=== PATIENT | male | born 1945 | race Caucasian/White ===

== ENCOUNTER 2019-11-19 19:52 | Inpatient (IN) ==
[2019-11-19 20:35] LABS: Basophils % 0.3 %; Eosinophils # 0.1 K/mcL (0.0-0.6); Eosinophils % 0.5 %; Hematocrit 39.5 % (37.5-50.1); Hemoglobin 13.6 g/dL (12.9-16.9); Immature Granulocytes % 0.5 % (0-4); Lymphocytes % 6.3 %; Mean Corpuscular HGB Conc 34.4 g/dL (31.6-35.5); Mean Corpuscular Hemoglobin 33.7 pg (28.0-33.3); Mean Corpuscular Volume 97.8 fL (83.0-100.0); Mean Platelet Volume 10.5 fL (9.4-12.4); Monocytes # 1.2 K/mcL (0.0-1.3); Monocytes % 7.4 %; Neutrophils # 13.1 K/mcL (1.6-8.9); Platelet Count 271 K/mcL (140-400); Red Blood Count 4.04 M/mcL (4.19-5.50); Red Cell Distribution Width 12.9 % (11.5-14.5); White Blood Count 15.4 K/mcL (4.3-11.1)
[2019-11-19] MEDS: 0.9 % Sodium Chloride 1,000 ML IVC SCH (20:56)
[2019-11-19 21:03] LABS: BUN/Creatinine Ratio 20 (6-26); Blood Urea Nitrogen 26 mg/dL (8-23); Calcium 9.5 mg/dL (8.6-10.3); Carbon Dioxide 28 mEq/L (23-29); Chloride 101 mEq/L (98-107); Glucose 108 mg/dL (70-105); Osmolality,Calculated 299 (280-300); Potassium 3.8 mEq/L (3.5-5.1); Sodium 142 mEq/L (136-145); eGFR For African Americans > 60 (> 60); eGFR For Non-African Americans 55 (> 60)
[2019-11-19 21:05] LABS: Troponin I 0.03 ng/mL (< 0.04)
[2019-11-19] MEDS ORDERED: Naloxone 0.4 MG/ML INJ IVP PRN (21:25)
[2019-11-19] MEDS ORDERED: Ipratropium/Albuterol Neb 3 ML IH PRN (22:50)
[2019-11-19] MEDS ORDERED: MOM Conc 10 ML UD.LIQ PO PRN (22:52)
[2019-11-19] MEDS ORDERED: MOMETASONE FUROATE APPL TP PRN (22:52)
[2019-11-19] MEDS ORDERED: Carbamide Peroxide 150 DROP/15 ML BOTTLE BOTH EARS PRN (22:52)
[2019-11-19] MEDS ORDERED: Mag Hydrox/Al Hydrox/Simeth 30 ML UDC PO PRN (22:52)
[2019-11-19] MEDS ORDERED: Ondansetron 4 MG/2 ML VIAL IVP PRN (22:53)
[2019-11-19] MEDS ORDERED: SELENIUM SULFIDE APPL TP SCH (23:00)
[2019-11-20 05:08] LABS: Basophils % 0.3 %; Eosinophils # 0.3 K/mcL (0.0-0.6); Eosinophils % 2.1 %; Hematocrit 37.8 % (37.5-50.1); Hemoglobin 12.6 g/dL (12.9-16.9); Immature Granulocytes % 0.3 % (0-4); Lymphocytes % 8.2 %; Mean Corpuscular HGB Conc 33.3 g/dL (31.6-35.5); Mean Corpuscular Hemoglobin 34.1 pg (28.0-33.3); Mean Corpuscular Volume 102.2 fL (83.0-100.0); Mean Platelet Volume 10.5 fL (9.4-12.4); Monocytes # 1.2 K/mcL (0.0-1.3); Monocytes % 10.1 %; Neutrophils # 9.3 K/mcL (1.6-8.9); Platelet Count 237 K/mcL (140-400); Red Cell Distribution Width 12.8 % (11.5-14.5); White Blood Count 11.7 K/mcL (4.3-11.1)
[2019-11-20 05:28] LABS: BUN/Creatinine Ratio 19 (6-26); Blood Urea Nitrogen 21 mg/dL (8-23); Calcium 8.8 mg/dL (8.6-10.3); Carbon Dioxide 30 mEq/L (23-29); Chloride 104 mEq/L (98-107); Glucose 89 mg/dL (70-105); Osmolality,Calculated 294 (280-300); Potassium 3.8 mEq/L (3.5-5.1); Sodium 141 mEq/L (136-145); eGFR For African Americans > 60 (> 60); eGFR For Non-African Americans > 60 (> 60)
[2019-11-20] MEDS ORDERED: NON-FORMULARY MEDICATION 1 EACH EACH (Omega-3/Dha/Epa/Fish Oil [Fish Oil 1,000 Mg Softgel] PO SCH (07:00)
[2019-11-20] MEDS: Multivit/Ca/Min/Fe/FA 1 TAB TABLET PO SCH ×2 (08:01→10:20)
[2019-11-20] MEDS: Ascorbic Acid 500 MG TABLET PO SCH ×2 (08:02→10:20)
[2019-11-20] MEDS: cefTRIAXone 1,000 MG in Water for inj. (sterile) 10 ML IVP SCH (10:21)
[2019-11-20] MEDS: Azithromycin 500 MG in 0.9 % Sodium Chloride 250 ML IVPB SCH (10:21)
[2019-11-20] MEDS: CLEAR EYES NATURAL TEARS 15 ML BOTTLE BOTH EYES SCH ×3 (10:21→17:10)
[2019-11-20] MEDS: 0.9 % Sodium Chloride 1,000 ML IVC SCH (10:22)
[2019-11-20 11:59] LABS: Adenovirus Not Detected (Not Detect); Bordetella Pertussis Not Detected (Not Detect); Chlamydophila pneumoniae Not Detected (Not Detect); Coronavirus 229E Not Detected (Not Detect); Coronavirus HKU1 Not Detected (Not Detect); Coronavirus NL63 Not Detected (Not Detect); Coronavirus OC43 Not Detected (Not Detect); Human Metapneumovirus Not Detected (Not Detect); Human Rhinovirus/Enterovirus Not Detected (Not Detect); Influenza A Subtype 2009 H1 Not Detected (Not Detect); Influenza B Not Detected (Not Detect); Mycoplasma pneumoniae Not Detected (Not Detect); Parainfluenza Virus 1 Not Detected (Not Detect); Parainfluenza Virus 2 Not Detected (Not Detect); Parainfluenza Virus 3 Not Detected (Not Detect); Parainfluenza Virus 4 Not Detected (Not Detect); Respiratory Syncytial Virus Not Detected (Not Detect)
[2019-11-20] MEDS ORDERED: GuaiFENesin Liq 200 MG/10 ML UDC PO PRN (13:19)
[2019-11-20] MEDS: amLODIPine 5 MG TABLET PO SCH (14:31)
[2019-11-20] MEDS: Albuterol 2.5 MG/3 ML NEBULIZER IH SCH ×2 (15:42→20:41)
[2019-11-20] MEDS: Acetylcysteine 10% 2 ML INHSOL IH SCH ×2 (15:42→20:41)
[2019-11-21] MEDS: Albuterol 2.5 MG/3 ML NEBULIZER IH SCH ×6 (00:02→20:01)
[2019-11-21] MEDS: ARIPiprazole 5 MG TABLET PO SCH ×2 (00:10→21:19)
[2019-11-21] MEDS: CLEAR EYES NATURAL TEARS 15 ML BOTTLE BOTH EYES SCH ×5 (00:10→21:21)
[2019-11-21] MEDS: 0.9 % Sodium Chloride 1,000 ML IVC SCH ×2 (01:23→17:05)
[2019-11-21] MEDS: Acetylcysteine 10% 2 ML INHSOL IH SCH (03:57)
[2019-11-21 06:09] LABS: Basophils % 0.2 %; Eosinophils # 0.1 K/mcL (0.0-0.6); Eosinophils % 0.4 %; Hematocrit 38.5 % (37.5-50.1); Hemoglobin 12.8 g/dL (12.9-16.9); Immature Granulocytes % 0.4 % (0-4); Lymphocytes # 0.7 K/mcL (0.6-4.6); Lymphocytes % 5.6 %; Mean Corpuscular HGB Conc 33.2 g/dL (31.6-35.5); Mean Corpuscular Hemoglobin 33.4 pg (28.0-33.3); Mean Corpuscular Volume 100.5 fL (83.0-100.0); Mean Platelet Volume 10.8 fL (9.4-12.4); Monocytes % 7.6 %; Neutrophils # 11.1 K/mcL (1.6-8.9); Platelet Count 241 K/mcL (140-400); Red Blood Count 3.83 M/mcL (4.19-5.50); Red Cell Distribution Width 12.9 % (11.5-14.5); Segmented Neutrophils % 85.8 %
[2019-11-21 06:28] LABS: BUN/Creatinine Ratio 16 (6-26); Blood Urea Nitrogen 16 mg/dL (8-23); Calcium 8.7 mg/dL (8.6-10.3); Carbon Dioxide 30 mEq/L (23-29); Chloride 100 mEq/L (98-107); Glucose 109 mg/dL (70-105); Osmolality,Calculated 294 (280-300); Potassium 3.7 mEq/L (3.5-5.1); Sodium 141 mEq/L (136-145); eGFR For African Americans > 60 (> 60); eGFR For Non-African Americans > 60 (> 60)
[2019-11-21] MEDS: Ascorbic Acid 500 MG TABLET PO SCH (07:55)
[2019-11-21] MEDS: Multivit/Ca/Min/Fe/FA 1 TAB TABLET PO SCH (07:55)
[2019-11-21] MEDS: cefTRIAXone 1,000 MG in Water for inj. (sterile) 10 ML IVP SCH (09:25)
[2019-11-21] MEDS: Azithromycin 500 MG in 0.9 % Sodium Chloride 250 ML IVPB SCH (09:27)
[2019-11-21] MEDS: amLODIPine 5 MG TABLET PO SCH (09:28)
[2019-11-22] MEDS: Albuterol 2.5 MG/3 ML NEBULIZER IH SCH ×4 (00:31→11:38)
[2019-11-22 06:03] LABS: Basophils # 0.1 K/mcL (0.0-0.2); Basophils % 0.4 %; Eosinophils # 0.1 K/mcL (0.0-0.6); Eosinophils % 0.7 %; Hematocrit 39.5 % (37.5-50.1); Immature Granulocytes % 0.7 % (0-4); Lymphocytes # 0.7 K/mcL (0.6-4.6); Mean Corpuscular HGB Conc 32.9 g/dL (31.6-35.5); Mean Corpuscular Hemoglobin 33.2 pg (28.0-33.3); Mean Platelet Volume 10.1 fL (9.4-12.4); Monocytes % 8.3 %; Platelet Count 242 K/mcL (140-400); Red Blood Count 3.91 M/mcL (4.19-5.50); Red Cell Distribution Width 12.7 % (11.5-14.5); Segmented Neutrophils % 83.9 %; White Blood Count 11.9 K/mcL (4.3-11.1)
[2019-11-22] MEDS: cefTRIAXone 1,000 MG in Water for inj. (sterile) 10 ML IVP SCH (08:43)
[2019-11-22] MEDS: 0.9 % Sodium Chloride 1,000 ML IVC SCH (08:44)
[2019-11-22] MEDS: Multivit/Ca/Min/Fe/FA 1 TAB TABLET PO SCH (08:45)
[2019-11-22] MEDS: amLODIPine 5 MG TABLET PO SCH (08:45)
[2019-11-22] MEDS: Ascorbic Acid 500 MG TABLET PO SCH (08:45)
[2019-11-22 09:18] LABS: BUN/Creatinine Ratio 15 (6-26); Blood Urea Nitrogen 13 mg/dL (8-23); Calcium 8.7 mg/dL (8.6-10.3); Carbon Dioxide 31 mEq/L (23-29); Chloride 100 mEq/L (98-107); Glucose 97 mg/dL (70-105); Osmolality,Calculated 292 (280-300); Potassium 3.7 mEq/L (3.5-5.1); Sodium 141 mEq/L (136-145); eGFR For African Americans > 60 (> 60); eGFR For Non-African Americans > 60 (> 60)
[2019-11-22] MEDS ORDERED: Albuterol 2.5 MG/3 ML NEBULIZER IH PRN (12:00)
[2019-11-22] MEDS: CLEAR EYES NATURAL TEARS 15 ML BOTTLE BOTH EYES SCH ×4 (12:24→21:30)
[2019-11-22] MEDS: Azithromycin 500 MG in 0.9 % Sodium Chloride 250 ML IVPB SCH (12:25)
[2019-11-22] MEDS: Ipratropium/Albuterol Neb 3 ML IH SCH ×2 (16:25→21:37)
[2019-11-22] MEDS: ARIPiprazole 5 MG TABLET PO SCH (21:29)
[2019-11-23] MEDS: Ipratropium/Albuterol Neb 3 ML IH SCH ×4 (04:04→22:28)
[2019-11-23] MEDS: Ascorbic Acid 500 MG TABLET PO SCH (06:17)
[2019-11-23] MEDS: Multivit/Ca/Min/Fe/FA 1 TAB TABLET PO SCH (06:17)
[2019-11-23] MEDS: Azithromycin 500 MG in 0.9 % Sodium Chloride 250 ML IVPB SCH (09:21)
[2019-11-23] MEDS: cefTRIAXone 1,000 MG in Water for inj. (sterile) 10 ML IVP SCH (09:22)
[2019-11-23] MEDS: amLODIPine 5 MG TABLET PO SCH (09:23)
[2019-11-23] MEDS: CLEAR EYES NATURAL TEARS 15 ML BOTTLE BOTH EYES SCH ×4 (09:24→20:41)
[2019-11-23] MEDS: ARIPiprazole 5 MG TABLET PO SCH (20:40)
[2019-11-24] MEDS: Ipratropium/Albuterol Neb 3 ML IH SCH ×4 (03:41→22:24)
[2019-11-24] MEDS: cefTRIAXone 1,000 MG in Water for inj. (sterile) 10 ML IVP SCH (08:41)
[2019-11-24] MEDS: Azithromycin 500 MG in 0.9 % Sodium Chloride 250 ML IVPB SCH (08:42)
[2019-11-24] MEDS: Multivit/Ca/Min/Fe/FA 1 TAB TABLET PO SCH (08:43)
[2019-11-24] MEDS: CLEAR EYES NATURAL TEARS 15 ML BOTTLE BOTH EYES SCH ×4 (08:43→20:38)
[2019-11-24] MEDS: amLODIPine 5 MG TABLET PO SCH (08:43)
[2019-11-24] MEDS: Ascorbic Acid 500 MG TABLET PO SCH (08:43)
[2019-11-24] MEDS: ARIPiprazole 5 MG TABLET PO SCH (20:38)
[2019-11-25 00:53] LABS: Basophils % 0.5 %; Eosinophils # 0.2 K/mcL (0.0-0.6); Eosinophils % 2.6 %; Hematocrit 40.2 % (37.5-50.1); Hemoglobin 13.7 g/dL (12.9-16.9); Immature Granulocytes % 0.2 % (0-4); Lymphocytes # 1.1 K/mcL (0.6-4.6); Lymphocytes % 13.5 %; Mean Corpuscular HGB Conc 34.1 g/dL (31.6-35.5); Mean Corpuscular Volume 99.8 fL (83.0-100.0); Monocytes # 1.1 K/mcL (0.0-1.3); Monocytes % 12.4 %; Platelet Count 276 K/mcL (140-400); Red Blood Count 4.03 M/mcL (4.19-5.50); Red Cell Distribution Width 12.3 % (11.5-14.5); Segmented Neutrophils % 70.8 %; White Blood Count 8.5 K/mcL (4.3-11.1)
[2019-11-25 01:18] LABS: BUN/Creatinine Ratio 20 (6-26); Blood Urea Nitrogen 21 mg/dL (8-23); Calcium 8.8 mg/dL (8.6-10.3); Carbon Dioxide 31 mEq/L (23-29); Chloride 101 mEq/L (98-107); Glucose 102 mg/dL (70-105); Osmolality,Calculated 295 (280-300); Potassium 3.8 mEq/L (3.5-5.1); Sodium 141 mEq/L (136-145); eGFR For African Americans > 60 (> 60); eGFR For Non-African Americans > 60 (> 60)
[2019-11-25] MEDS: Ipratropium/Albuterol Neb 3 ML IH SCH ×4 (03:58→22:10)
[2019-11-25] MEDS: Azithromycin 500 MG in 0.9 % Sodium Chloride 250 ML IVPB SCH (08:37)
[2019-11-25] MEDS: cefTRIAXone 1,000 MG in Water for inj. (sterile) 10 ML IVP SCH (08:37)
[2019-11-25] MEDS: Ascorbic Acid 500 MG TABLET PO SCH (08:38)
[2019-11-25] MEDS: CLEAR EYES NATURAL TEARS 15 ML BOTTLE BOTH EYES SCH ×4 (08:38→21:50)
[2019-11-25] MEDS: amLODIPine 5 MG TABLET PO SCH (08:38)
[2019-11-25] MEDS: Multivit/Ca/Min/Fe/FA 1 TAB TABLET PO SCH (08:38)
[2019-11-25] MEDS ORDERED: Isovue-370 500 ML BOTTLE IVP ONE (09:05)
[2019-11-25] MEDS ORDERED: Simethicone 80 MG TAB.CHEW PO ONE (17:03)
[2019-11-25] MEDS: ARIPiprazole 5 MG TABLET PO SCH (20:02)
[2019-11-25] MEDS: Acetylcysteine 10% 2 ML INHSOL IH SCH ×3 (22:10→22:14)
[2019-11-26] MEDS: Ipratropium/Albuterol Neb 3 ML IH SCH ×4 (03:49→21:47)
[2019-11-26] MEDS: Acetylcysteine 10% 2 ML INHSOL IH SCH ×4 (03:50→21:47)
[2019-11-26] MEDS: Multivit/Ca/Min/Fe/FA 1 TAB TABLET PO SCH (08:10)
[2019-11-26] MEDS: amLODIPine 5 MG TABLET PO SCH (08:10)
[2019-11-26] MEDS: cefTRIAXone 1,000 MG in Water for inj. (sterile) 10 ML IVP SCH (08:11)
[2019-11-26] MEDS: Azithromycin 500 MG in 0.9 % Sodium Chloride 250 ML IVPB SCH (08:11)
[2019-11-26] MEDS: Ascorbic Acid 500 MG TABLET PO SCH (08:11)
[2019-11-26] MEDS: CLEAR EYES NATURAL TEARS 15 ML BOTTLE BOTH EYES SCH ×4 (08:12→23:21)
[2019-11-26] MEDS: ARIPiprazole 5 MG TABLET PO SCH (23:26)
[2019-11-27] MEDS: Ipratropium/Albuterol Neb 3 ML IH SCH ×4 (03:18→22:31)
[2019-11-27] MEDS: Acetylcysteine 10% 2 ML INHSOL IH SCH ×4 (03:18→22:31)
[2019-11-27] MEDS: Multivit/Ca/Min/Fe/FA 1 TAB TABLET PO SCH (06:09)
[2019-11-27] MEDS: Ascorbic Acid 500 MG TABLET PO SCH (06:09)
[2019-11-27] MEDS: CLEAR EYES NATURAL TEARS 15 ML BOTTLE BOTH EYES SCH ×4 (07:38→21:07)
[2019-11-27] MEDS: amLODIPine 5 MG TABLET PO SCH (07:38)
[2019-11-27] MEDS ORDERED: Gadolinium Contrast Agent (WT Based) IV PRN (08:18)
[2019-11-27] MEDS ORDERED: predniSONE 20 MG TABLET PO ONE (14:30)
[2019-11-27] MEDS: Doxycycline 100 MG CAPSULE PO SCH ×2 (15:11→21:07)
[2019-11-27] MEDS: metroNIDAZOLE 500 MG TABLET PO SCH ×3 (15:11→21:07)
[2019-11-27] MEDS: ARIPiprazole 5 MG TABLET PO SCH (21:07)
[2019-11-28] MEDS: Acetylcysteine 10% 2 ML INHSOL IH SCH ×2 (04:38→09:18)
[2019-11-28] MEDS: Ipratropium/Albuterol Neb 3 ML IH SCH ×2 (04:38→09:18)
[2019-11-28] MEDS: Ascorbic Acid 500 MG TABLET PO SCH (06:15)
[2019-11-28] MEDS: Multivit/Ca/Min/Fe/FA 1 TAB TABLET PO SCH (06:15)
[2019-11-28] MEDS: metroNIDAZOLE 500 MG TABLET PO SCH (07:20)
[2019-11-28] MEDS: amLODIPine 5 MG TABLET PO SCH (07:20)
[2019-11-28] MEDS: CLEAR EYES NATURAL TEARS 15 ML BOTTLE BOTH EYES SCH ×2 (07:20→11:30)
[2019-11-28] MEDS: Doxycycline 100 MG CAPSULE PO SCH (07:20)
[2019-11-28 10:46] VITALS: BP 110/68
== END 2019-11-28 13:08 | disposition home or self-care (01) | DRG 177 ==
LOC: EMEROOARM 19:52 → 3ANU 19:52 → SUATTDRO 11-20 13:44
PROVIDERS: ADMIT Student in an Organized Health Care Education/Training Program; ATTEND Internal Medicine

== ENCOUNTER 2022-02-04 09:01 | Inpatient (IN) ==
[2022-02-04] MEDS ORDERED: Ondansetron 4 MG/2 ML VIAL IVP ONE (09:14)
[2022-02-04] MEDS ORDERED: 0.9 % Sodium Chloride 1,000 ML IVC ONE (09:14)
[2022-02-04 10:16] LABS: Influenza A PCR Positive (Negative); Influenza B PCR Negative (Negative); Resp. Syncytial Virus PCR Negative (Negative)
[2022-02-04 10:17] LABS: SARS-CoV-2 by PCR (In House) Negative (Negative)
[2022-02-04 10:36] LABS: Basophils % 0.5 %; Hematocrit 39.5 % (37.5-50.1); Hemoglobin 13.4 g/dL (12.9-16.9); Immature Granulocytes % 0.4 % (0-4); Lymphocytes # 0.2 K/mcL (0.6-4.6); Lymphocytes % 2.7 %; Mean Corpuscular HGB Conc 33.9 g/dL (31.6-35.5); Mean Corpuscular Hemoglobin 33.5 pg (28.0-33.3); Mean Corpuscular Volume 98.8 fL (83.0-100.0); Mean Platelet Volume 10.7 fL (9.4-12.4); Monocytes # 1.1 K/mcL (0.0-1.3); Neutrophils # 6.9 K/mcL (1.6-8.9); Platelet Count 156 K/mcL (140-400); Red Cell Distribution Width 13.1 % (11.5-14.5); Segmented Neutrophils % 83.4 %; White Blood Count 8.3 K/mcL (4.3-11.1)
[2022-02-04 11:10] LABS: Alanine Aminotransferase 16 Units/L (7-52); Albumin 3.8 g/dL (3.5-5.7); Albumin/Globulin Ratio 1.6 (1.1-2.2); Aspartate Amino Transferase 27 Units/L (13-39); BUN/Creatinine Ratio 18 (6-26); Bilirubin,Direct 0.2 mg/dL (0.0-0.2); Bilirubin,Indirect 0.6 mg/dL (0.0-1.0); Bilirubin,Total 0.8 mg/dL (0.3-1.0); Blood Urea Nitrogen 23 mg/dL (8-23); Calcium 8.4 mg/dL (8.6-10.3); Carbon Dioxide 28 mEq/L (23-29); Chloride 103 mEq/L (98-107); Globulin 2.4 g/dL (2.4-3.5); Glucose 133 mg/dL (70-105); Lipase 9 Units/L (11-82); Osmolality,Calculated 298 (280-300); Potassium 3.8 mEq/L (3.5-5.1); Sodium 141 mEq/L (136-145); Total Protein 6.2 g/dL (6.4-8.9); eGFR For African Americans > 60 (> 60); eGFR For Non-African Americans 55 (> 60)
[2022-02-04 11:19] LABS: Troponin I 0.04 ng/mL (< 0.04)
[2022-02-04] MEDS ORDERED: Melatonin 3 MG TABLET PO PRN (11:42)
[2022-02-04] MEDS ORDERED: Naloxone 0.4 MG/ML INJ IVP PRN (11:42)
[2022-02-04] MEDS ORDERED: Ondansetron ODT 4 MG TAB.RAPDIS SL PRN (11:42)
[2022-02-04] MEDS ORDERED: *HR* HYDROcodone/Acet 5/325 mg TABLET PO PRN (11:42)
[2022-02-04] MEDS ORDERED: Acetaminophen 325 MG TABLET PO PRN (11:42)
[2022-02-04 12:30] LABS: Alkaline Phosphatase 59 Units/L (34-104)
[2022-02-04] MEDS ORDERED: MOM Conc 10 ML UD.LIQ PO PRN (13:53)
[2022-02-04] MEDS ORDERED: Albuterol 2.5 MG/3 ML NEBULIZER IH PRN (13:53)
[2022-02-04] MEDS: Ipratropium/Albuterol Neb 3 ML IH SCH ×2 (15:55→21:05)
[2022-02-04] MEDS: Artificial Tears SOLN 15 ML BOTTLE BOTH EYES SCH ×2 (17:45→19:39)
[2022-02-04] MEDS: ARIPiprazole 5 MG TABLET PO SCH (19:37)
[2022-02-04] MEDS: *HR* Heparin 5,000 UNIT/ML VIAL SQ SCH (20:48)
[2022-02-05 01:41] LABS: Basophils % 0.2 %; Hematocrit 40.8 % (37.5-50.1); Hemoglobin 13.7 g/dL (12.9-16.9); Immature Granulocytes % 0.3 % (0-4); Lymphocytes # 0.5 K/mcL (0.6-4.6); Lymphocytes % 5.8 %; Mean Corpuscular HGB Conc 33.6 g/dL (31.6-35.5); Mean Corpuscular Hemoglobin 33.3 pg (28.0-33.3); Mean Platelet Volume 10.3 fL (9.4-12.4); Monocytes # 1.1 K/mcL (0.0-1.3); Monocytes % 11.9 %; Neutrophils # 7.3 K/mcL (1.6-8.9); Platelet Count 157 K/mcL (140-400); Red Blood Count 4.12 M/mcL (4.19-5.50); Red Cell Distribution Width 13.2 % (11.5-14.5); Segmented Neutrophils % 81.8 %; White Blood Count 8.9 K/mcL (4.3-11.1)
[2022-02-05 02:01] LABS: Blood Urea Nitrogen 23 mg/dL (8-23); Calcium 8.3 mg/dL (8.6-10.3); Carbon Dioxide 31 mEq/L (23-29); Chloride 101 mEq/L (98-107); Glucose 103 mg/dL (70-105); Osmolality,Calculated 296 (280-300); Potassium 3.9 mEq/L (3.5-5.1); Sodium 141 mEq/L (136-145)
[2022-02-05 03:26] LABS: BUN/Creatinine Ratio 19 (6-26); eGFR For African Americans > 60 (> 60); eGFR For Non-African Americans 58 (> 60)
[2022-02-05] MEDS: Ipratropium/Albuterol Neb 3 ML IH SCH ×4 (03:36→20:15)
[2022-02-05] MEDS: *HR* Heparin 5,000 UNIT/ML VIAL SQ SCH ×3 (05:48→20:21)
[2022-02-05 09:09] LABS: Troponin I 0.06 ng/mL (< 0.04)
[2022-02-05] MEDS: Artificial Tears SOLN 15 ML BOTTLE BOTH EYES SCH ×4 (10:22→19:35)
[2022-02-05] MEDS: amLODIPine 5 MG TABLET PO SCH (10:22)
[2022-02-05] MEDS: Azithromycin 500 MG in 0.9 % Sodium Chloride 250 ML IVPB SCH (17:08)
[2022-02-05] MEDS: cefTRIAXone 1,000 MG in 0.9 % Sodium Chloride 10 ML IVP SCH (18:04)
[2022-02-05] MEDS: ARIPiprazole 5 MG TABLET PO SCH (19:32)
[2022-02-05] MEDS: GuaiFENesin Liq 200 MG/10 ML UDC PO PRN (19:35)
[2022-02-05] MEDS ORDERED: *HR* Metoprolol 5 MG/5 ML VIAL IVP ONE ×2 (22:32→23:33)
[2022-02-06] MEDS ORDERED: *HR* Metoprolol 5 MG/5 ML VIAL IVP ONE (01:17)
[2022-02-06] MEDS ORDERED: *HR* Heparin 5,000 UNIT/ML VIAL IVP PRN ×2 (02:44)
[2022-02-06 03:25] LABS: Basophils % 0.1 %; Hematocrit 42.4 % (37.5-50.1); Hemoglobin 14.4 g/dL (12.9-16.9); Immature Granulocytes % 0.3 % (0-4); Lymphocytes # 0.5 K/mcL (0.6-4.6); Lymphocytes % 5.4 %; Mean Corpuscular Hemoglobin 34.2 pg (28.0-33.3); Mean Corpuscular Volume 100.7 fL (83.0-100.0); Mean Platelet Volume 11.1 fL (9.4-12.4); Monocytes # 1.1 K/mcL (0.0-1.3); Monocytes % 12.7 %; Neutrophils # 7.1 K/mcL (1.6-8.9); Platelet Count 148 K/mcL (140-400); Red Blood Count 4.21 M/mcL (4.19-5.50); Red Cell Distribution Width 13.3 % (11.5-14.5); Segmented Neutrophils % 81.5 %; White Blood Count 8.7 K/mcL (4.3-11.1)
[2022-02-06] MEDS: Ipratropium/Albuterol Neb 3 ML IH SCH ×4 (03:29→19:51)
[2022-02-06 03:40] LABS: Alanine Aminotransferase 20 Units/L (7-52); Albumin 3.7 g/dL (3.5-5.7); Albumin/Globulin Ratio 1.4 (1.1-2.2); Alkaline Phosphatase 60 Units/L (34-104); Aspartate Amino Transferase 43 Units/L (13-39); BUN/Creatinine Ratio 23 (6-26); Bilirubin,Total 0.7 mg/dL (0.3-1.0); Blood Urea Nitrogen 24 mg/dL (8-23); Calcium 8.3 mg/dL (8.6-10.3); Carbon Dioxide 32 mEq/L (23-29); Chloride 101 mEq/L (98-107); Globulin 2.6 g/dL (2.4-3.5); Glucose 109 mg/dL (70-105); Osmolality,Calculated 297 (280-300); Potassium 3.7 mEq/L (3.5-5.1); Sodium 141 mEq/L (136-145); Total Protein 6.3 g/dL (6.4-8.9); eGFR For African Americans > 60 (> 60); eGFR For Non-African Americans > 60 (> 60)
[2022-02-06] MEDS: Heparin 25,000UNIT/250ML 1/2NS 25,000 UNIT/250 ML IV.SOLN IVC SCH (03:44)
[2022-02-06 06:07] LABS: Heparin anti-factor XA UFH 0.25 IU/mL (0.30-0.70); INR 1.1; Prothrombin Time 12.3 Seconds (9.4-12.1)
[2022-02-06] MEDS: amLODIPine 5 MG TABLET PO SCH (08:26)
[2022-02-06] MEDS: Carbamide Peroxide 150 DROP/15 ML BOTTLE BOTH EARS PRN ×2 (08:28→20:19)
[2022-02-06] MEDS ORDERED: Perflutren Lipid Microsphere 1.3 ML in 0.9 % Sodium Chloride 8.7 ML IVP PRN (09:09)
[2022-02-06 09:47] LABS: Bacteria,Urine Few per hpf (None-Few); Bilirubin,Urine Negative (Negative); Blood,Urine Small (Negative); Clarity,Urine Clear (Clear); Color,Urine Yellow (Yellow); Glucose,Urine (UA) Normal (Normal); Ketones,Urine Trace mg/dL (Negative); Leukocyte Esterase,Urine Negative (Negative); Mucus,Urine Few per lpf (None-Few); Nitrite,Urine Negative (Negative); Protein,Urine 100 mg/dL (Neg-Trace); RBC,Urine 0-3 per hpf (0-3); Specific Gravity,Urine 1.019 (1.010-1.025); Squamous Epithelial Cell,Urine Few per hpf (None-Few); Urobilinogen,Urine Normal (Normal); WBC,Urine 0-3 per hpf (0-3)
[2022-02-06] MEDS: Artificial Tears SOLN 15 ML BOTTLE BOTH EYES SCH ×4 (10:07→20:25)
[2022-02-06] MEDS: predniSONE 20 MG TABLET PO SCH (12:04)
[2022-02-06] MEDS: Azithromycin 500 MG in 0.9 % Sodium Chloride 250 ML IVPB SCH (18:15)
[2022-02-06] MEDS: cefTRIAXone 1,000 MG in 0.9 % Sodium Chloride 10 ML IVP SCH (18:15)
[2022-02-06] MEDS: ARIPiprazole 5 MG TABLET PO SCH (20:15)
[2022-02-06] MEDS: GuaiFENesin Liq 200 MG/10 ML UDC PO PRN (20:23)
[2022-02-07] MEDS: Ipratropium/Albuterol Neb 3 ML IH SCH ×4 (03:40→20:44)
[2022-02-07 06:56] LABS: Hematocrit 40.7 % (37.5-50.1); Hemoglobin 13.9 g/dL (12.9-16.9); Immature Granulocytes % 0.1 % (0-4); Lymphocytes # 0.6 K/mcL (0.6-4.6); Mean Corpuscular HGB Conc 34.2 g/dL (31.6-35.5); Mean Corpuscular Volume 99.5 fL (83.0-100.0); Mean Platelet Volume 11.3 fL (9.4-12.4); Monocytes # 0.9 K/mcL (0.0-1.3); Monocytes % 12.4 %; Neutrophils # 5.6 K/mcL (1.6-8.9); Platelet Count 161 K/mcL (140-400); Red Blood Count 4.09 M/mcL (4.19-5.50); Red Cell Distribution Width 13.1 % (11.5-14.5); Segmented Neutrophils % 78.5 %; White Blood Count 7.2 K/mcL (4.3-11.1)
[2022-02-07 07:08] LABS: BUN/Creatinine Ratio 33 (6-26); Blood Urea Nitrogen 40 mg/dL (8-23); Calcium 8.4 mg/dL (8.6-10.3); Carbon Dioxide 35 mEq/L (23-29); Chloride 100 mEq/L (98-107); Glucose 121 mg/dL (70-105); Osmolality,Calculated 307 (280-300); Potassium 3.4 mEq/L (3.5-5.1); Sodium 143 mEq/L (136-145); eGFR For African Americans > 60 (> 60); eGFR For Non-African Americans 58 (> 60)
[2022-02-07] MEDS: Heparin 25,000UNIT/250ML 1/2NS 25,000 UNIT/250 ML IV.SOLN IVC SCH (08:34)
[2022-02-07] MEDS: amLODIPine 5 MG TABLET PO SCH (08:40)
[2022-02-07] MEDS: Artificial Tears SOLN 15 ML BOTTLE BOTH EYES SCH ×4 (08:40→20:32)
[2022-02-07] MEDS: predniSONE 20 MG TABLET PO SCH (08:40)
[2022-02-07] MEDS ORDERED: *HR* Heparin 5,000 UNIT/ML VIAL SQ SCH (14:00)
[2022-02-07] MEDS ORDERED: Heparin 25,000UNIT/250ML 1/2NS 25,000 UNIT/250 ML IV.SOLN IVC SCH (15:45)
[2022-02-07] MEDS: Azithromycin 500 MG in 0.9 % Sodium Chloride 250 ML IVPB SCH (16:38)
[2022-02-07] MEDS: cefTRIAXone 1,000 MG in 0.9 % Sodium Chloride 10 ML IVP SCH (16:38)
[2022-02-07 17:12] LABS: Hematocrit 39.4 % (37.5-50.1); Hemoglobin 13.5 g/dL (12.9-16.9); Mean Corpuscular HGB Conc 34.3 g/dL (31.6-35.5); Mean Corpuscular Hemoglobin 34.2 pg (28.0-33.3); Mean Corpuscular Volume 99.7 fL (83.0-100.0); Mean Platelet Volume 10.7 fL (9.4-12.4); Platelet Count 152 K/mcL (140-400); Red Blood Count 3.95 M/mcL (4.19-5.50); White Blood Count 8.3 K/mcL (4.3-11.1)
[2022-02-07 17:18] LABS: Heparin anti-factor XA UFH < 0.04 IU/mL (0.30-0.70)
[2022-02-07 17:19] LABS: Prothrombin Time 11.6 Seconds (9.4-12.1)
[2022-02-07] MEDS: ARIPiprazole 5 MG TABLET PO SCH (20:32)
[2022-02-07] MEDS: GuaiFENesin Liq 200 MG/10 ML UDC PO PRN (20:32)
[2022-02-08] MEDS: Ipratropium/Albuterol Neb 3 ML IH SCH ×3 (04:08→16:11)
[2022-02-08] MEDS: amLODIPine 5 MG TABLET PO SCH (10:37)
[2022-02-08] MEDS: predniSONE 20 MG TABLET PO SCH (10:38)
[2022-02-08] MEDS: Artificial Tears SOLN 15 ML BOTTLE BOTH EYES SCH ×2 (10:39→14:51)
[2022-02-08 15:55] VITALS: BP 161/62; PULSE 81; TEMP 97.9
[2022-02-08 16:13] VITALS: O2SAT 94
[2022-02-08] MEDS ORDERED: *HR* Rivaroxaban 10 MG TABLET PO SCH (17:00)
== END 2022-02-08 16:35 | disposition home or self-care (01) | DRG 193 ==
LOC: EMEROOARM 09:01 → 3ANU 09:01 → SUATTDRO 12:26 → 3ANU 13:51
PROVIDERS: ADMIT Internal Medicine; ATTEND Family Medicine

== ENCOUNTER 2022-05-28 12:17 | Inpatient (IN) ==
[2022-05-28] MEDS ORDERED: methocarbamoL 500 MG TABLET PO ONE (15:55)
[2022-05-28] MEDS ORDERED: Ketorolac 30 MG/ML VIAL IVP ONE (15:55)
[2022-05-28] MEDS ORDERED: Morphine Sulfate 2 MG/ML SYRINGE IVP ONE (15:55)
[2022-05-28 16:08] LABS: Basophils % 0.3 %; Eosinophils % 0.1 %; Hematocrit 41.8 % (37.5-50.1); Hemoglobin 13.9 g/dL (12.9-16.9); Immature Granulocytes % 0.4 % (0-4); Lymphocytes # 0.6 K/mcL (0.6-4.6); Lymphocytes % 4.6 %; Mean Corpuscular HGB Conc 33.3 g/dL (31.6-35.5); Mean Corpuscular Volume 99.3 fL (83.0-100.0); Mean Platelet Volume 11.3 fL (9.4-12.4); Monocytes # 1.9 K/mcL (0.0-1.3); Monocytes % 14.4 %; Neutrophils # 10.8 K/mcL (1.6-8.9); Platelet Count 193 K/mcL (140-400); Red Blood Count 4.21 M/mcL (4.19-5.50); Red Cell Distribution Width 12.9 % (11.5-14.5); Segmented Neutrophils % 80.2 %; White Blood Count 13.4 K/mcL (4.3-11.1)
[2022-05-28 16:20] LABS: INR 1.5; Prothrombin Time 16.7 Seconds (9.4-12.1)
[2022-05-28 16:35] LABS: Albumin 4.5 g/dL (3.5-5.7); Albumin/Globulin Ratio 1.3 (1.1-2.2); Bilirubin,Total 1.5 mg/dL (0.3-1.0); Calcium 9.2 mg/dL (8.6-10.3); Globulin 3.5 g/dL (2.4-3.5); Potassium 3.8 mEq/L (3.5-5.1); Troponin I 0.04 ng/mL (< 0.04)
[2022-05-28] MEDS ORDERED: Iopamidol - 370 500 ML MLS IVP ONE (16:43)
[2022-05-28] MEDS ORDERED: Piperacillin/Tazobactam 3.375 GM in 0.9 % Sodium Chloride Mini Bag 100 ML IVPB ONE (16:45)
[2022-05-28] MEDS ORDERED: Vancomycin 1,250 MG/262.5 ML IV.SOLN IVPB ONE (17:00)
[2022-05-28 18:04] LABS: Adenovirus Not Detected (Not Detect); Bordetella Pertussis Not Detected (Not Detect); Chlamydophila pneumoniae Not Detected (Not Detect); Coronavirus 229E Not Detected (Not Detect); Coronavirus HKU1 Not Detected (Not Detect); Coronavirus NL63 Not Detected (Not Detect); Coronavirus OC43 Not Detected (Not Detect); Human Metapneumovirus Not Detected (Not Detect); Human Rhinovirus/Enterovirus Not Detected (Not Detect); Influenza A Subtype 2009 H1 Not Detected (Not Detect); Influenza B Not Detected (Not Detect); Mycoplasma pneumoniae Not Detected (Not Detect); Parainfluenza Virus 1 Not Detected (Not Detect); Parainfluenza Virus 2 Not Detected (Not Detect); Parainfluenza Virus 3 Not Detected (Not Detect); Parainfluenza Virus 4 Not Detected (Not Detect); Respiratory Syncytial Virus Not Detected (Not Detect); SARS-CoV-2 Not Detected (Not Detect)
[2022-05-28 20:41] LABS: Bilirubin,Urine Negative (Negative); Blood,Urine Negative (Negative); Clarity,Urine Clear (Clear); Color,Urine Light-Yellow (Yellow); Glucose,Urine (UA) Normal (Normal); Ketones,Urine Negative (Negative); Leukocyte Esterase,Urine Negative (Negative); Nitrite,Urine Negative (Negative); Protein,Urine 30 mg/dL (Neg-Trace); RBC,Urine 0-3 per hpf (0-3); Specific Gravity,Urine > 1.030 (1.010-1.025); Squamous Epithelial Cell,Urine Few per hpf (None-Few); Urobilinogen,Urine Normal (Normal); WBC,Urine 0-3 per hpf (0-3)
[2022-05-28] MEDS ORDERED: Naloxone 0.4 MG/ML INJ IVP PRN (22:07)
[2022-05-28] MEDS ORDERED: Acetaminophen 325 MG TABLET PO PRN (22:07)
[2022-05-28] MEDS ORDERED: Ondansetron 4 MG/2 ML VIAL IVP PRN (22:07)
[2022-05-28] MEDS ORDERED: 0.9 % Sodium Chloride 1,000 ML IVC SCH (22:15)
[2022-05-29 02:39] LABS: VBG HCO3 30 mEq/L (21-27); VBG PCO2 52 mmHg (41-51); VBG PH 7.37 pH Units (7.32-7.42); VBG PO2 42 mmHg (25-50)
[2022-05-29 02:44] LABS: Hematocrit 36.7 % (37.5-50.1); Mean Corpuscular HGB Conc 33.2 g/dL (31.6-35.5); Mean Corpuscular Hemoglobin 32.8 pg (28.0-33.3); Mean Corpuscular Volume 98.7 fL (83.0-100.0); Platelet Count 182 K/mcL (140-400); Red Blood Count 3.72 M/mcL (4.19-5.50); Red Cell Distribution Width 12.9 % (11.5-14.5); White Blood Count 12.7 K/mcL (4.3-11.1)
[2022-05-29 02:56] LABS: Hemoglobin 12.2 g/dL (12.9-16.9)
[2022-05-29 02:57] LABS: Calcium 8.3 mg/dL (8.6-10.3)
[2022-05-29] MEDS: Cefepime HCl 2,000 MG in 0.9 % Sodium Chloride 10 ML IVP SCH ×2 (10:44→21:51)
[2022-05-29] MEDS ORDERED: GuaiFENesin Liq 200 MG/10 ML UDC PO PRN (17:11)
[2022-05-29] MEDS ORDERED: Albuterol 2.5 MG/3 ML NEBULIZER IH PRN (17:11)
[2022-05-29] MEDS ORDERED: Carbamide Peroxide 150 DROP/15 ML BOTTLE BOTH EARS PRN (17:11)
[2022-05-29] MEDS ORDERED: Acetaminophen 325 MG TABLET PO PRN (17:11)
[2022-05-29] MEDS ORDERED: *HR* Metoprolol 5 MG/5 ML VIAL IVP ONE (17:20)
[2022-05-29] MEDS ORDERED: Artificial Tears SOLN 15 ML BOTTLE BOTH EYES PRN (18:01)
[2022-05-29] MEDS ORDERED: *HR* Rivaroxaban 15 MG TABLET PO ONE (18:30)
[2022-05-29] MEDS: ARIPiprazole 5 MG TABLET PO SCH (21:48)
[2022-05-30 03:48] LABS: Basophils % 0.1 %; Hematocrit 39.9 % (37.5-50.1); Immature Granulocytes % 0.6 % (0-4); Lymphocytes # 0.6 K/mcL (0.6-4.6); Lymphocytes % 3.8 %; Mean Corpuscular HGB Conc 32.6 g/dL (31.6-35.5); Mean Corpuscular Hemoglobin 32.6 pg (28.0-33.3); Mean Platelet Volume 11.1 fL (9.4-12.4); Monocytes # 1.8 K/mcL (0.0-1.3); Monocytes % 11.8 %; Neutrophils # 12.7 K/mcL (1.6-8.9); Platelet Count 217 K/mcL (140-400); Red Blood Count 3.99 M/mcL (4.19-5.50); Red Cell Distribution Width 13.3 % (11.5-14.5); Segmented Neutrophils % 83.7 %; White Blood Count 15.1 K/mcL (4.3-11.1)
[2022-05-30 04:20] LABS: Calcium 8.2 mg/dL (8.6-10.3); Magnesium 2.1 mg/dL (1.6-2.6); Troponin I 0.07 ng/mL (< 0.04)
[2022-05-30] MEDS: Ascorbic Acid 500 MG TABLET PO SCH (07:56)
[2022-05-30] MEDS: amLODIPine 5 MG TABLET PO SCH (07:57)
[2022-05-30] MEDS: ARIPiprazole 5 MG TABLET PO SCH ×2 (07:58→20:42)
[2022-05-30] MEDS: Cefepime HCl 2,000 MG in 0.9 % Sodium Chloride 10 ML IVP SCH ×2 (09:24→20:41)
[2022-05-30] MEDS: 0.9 % Sodium Chloride 1,000 ML IVC SCH ×2 (09:24→20:41)
[2022-05-30] MEDS: Ipratropium/Albuterol Neb 3 ML IH SCH ×3 (13:27→22:17)
[2022-05-30] MEDS: *HR* Rivaroxaban 15 MG TABLET PO SCH (18:03)
[2022-05-31] MEDS: Ipratropium/Albuterol Neb 3 ML IH SCH ×4 (04:45→21:13)
[2022-05-31 05:38] LABS: Basophils % 0.1 %; Eosinophils % 0.3 %; Hematocrit 37.3 % (37.5-50.1); Hemoglobin 12.4 g/dL (12.9-16.9); Immature Granulocytes % 0.3 % (0-4); Lymphocytes # 0.6 K/mcL (0.6-4.6); Lymphocytes % 5.2 %; Mean Corpuscular HGB Conc 33.2 g/dL (31.6-35.5); Mean Corpuscular Volume 99.2 fL (83.0-100.0); Monocytes # 1.7 K/mcL (0.0-1.3); Monocytes % 14.8 %; Neutrophils # 9.1 K/mcL (1.6-8.9); Platelet Count 216 K/mcL (140-400); Red Blood Count 3.76 M/mcL (4.19-5.50); Red Cell Distribution Width 13.3 % (11.5-14.5); Segmented Neutrophils % 79.3 %; White Blood Count 11.5 K/mcL (4.3-11.1)
[2022-05-31 06:10] LABS: Calcium 8.4 mg/dL (8.6-10.3); Magnesium 2.3 mg/dL (1.6-2.6); Potassium 3.4 mEq/L (3.5-5.1)
[2022-05-31] MEDS: ARIPiprazole 5 MG TABLET PO SCH ×2 (08:43→23:05)
[2022-05-31] MEDS: Ascorbic Acid 500 MG TABLET PO SCH (08:43)
[2022-05-31] MEDS: amLODIPine 5 MG TABLET PO SCH (08:43)
[2022-05-31] MEDS: Cefepime HCl 2,000 MG in 0.9 % Sodium Chloride 10 ML IVP SCH ×2 (08:44→23:05)
[2022-05-31] MEDS ORDERED: Acetaminophen 325 MG TABLET PO PRN (15:08)
[2022-05-31] MEDS: *HR* Rivaroxaban 15 MG TABLET PO SCH (18:00)
[2022-06-01 02:48] LABS: Basophils % 0.2 %; Eosinophils # 0.1 K/mcL (0.0-0.6); Eosinophils % 0.6 %; Hematocrit 34.5 % (37.5-50.1); Hemoglobin 11.6 g/dL (12.9-16.9); Immature Granulocytes % 0.5 % (0-4); Lymphocytes # 0.7 K/mcL (0.6-4.6); Lymphocytes % 7.4 %; Mean Corpuscular HGB Conc 33.6 g/dL (31.6-35.5); Mean Corpuscular Hemoglobin 33.2 pg (28.0-33.3); Mean Corpuscular Volume 98.9 fL (83.0-100.0); Mean Platelet Volume 10.6 fL (9.4-12.4); Monocytes # 1.4 K/mcL (0.0-1.3); Monocytes % 15.4 %; Platelet Count 207 K/mcL (140-400); Red Blood Count 3.49 M/mcL (4.19-5.50); Red Cell Distribution Width 13.3 % (11.5-14.5); Segmented Neutrophils % 75.9 %; White Blood Count 9.3 K/mcL (4.3-11.1)
[2022-06-01 03:17] LABS: Calcium 7.9 mg/dL (8.6-10.3); Magnesium 2.2 mg/dL (1.6-2.6)
[2022-06-01] MEDS: Ipratropium/Albuterol Neb 3 ML IH SCH ×4 (04:32→22:46)
[2022-06-01] MEDS: Ascorbic Acid 500 MG TABLET PO SCH (07:29)
[2022-06-01] MEDS: ARIPiprazole 5 MG TABLET PO SCH ×2 (07:29→21:21)
[2022-06-01] MEDS: amLODIPine 5 MG TABLET PO SCH (07:29)
[2022-06-01] MEDS: Cefepime HCl 2,000 MG in 0.9 % Sodium Chloride 10 ML IVP SCH (10:26)
[2022-06-01] MEDS ORDERED: MetroNIDAZOLE 500 MG/100 ML 500 MG/100 ML BAG IVPB SCH (16:00)
[2022-06-01] MEDS: Piperacillin/Tazobactam 3.375 GM in 0.9 % Sodium Chloride Mini Bag 100 ML IVPB SCH (18:34)
[2022-06-02] MEDS: Piperacillin/Tazobactam 3.375 GM in 0.9 % Sodium Chloride Mini Bag 100 ML IVPB SCH ×3 (01:15→16:18)
[2022-06-02] MEDS: Ipratropium/Albuterol Neb 3 ML IH SCH ×4 (04:33→22:33)
[2022-06-02 05:56] LABS: Basophils % 0.3 %; Eosinophils # 0.1 K/mcL (0.0-0.6); Eosinophils % 1.3 %; Hematocrit 35.4 % (37.5-50.1); Hemoglobin 11.7 g/dL (12.9-16.9); Immature Granulocytes % 0.5 % (0-4); Lymphocytes # 0.6 K/mcL (0.6-4.6); Lymphocytes % 6.5 %; Mean Corpuscular HGB Conc 33.1 g/dL (31.6-35.5); Mean Corpuscular Hemoglobin 32.5 pg (28.0-33.3); Mean Corpuscular Volume 98.3 fL (83.0-100.0); Mean Platelet Volume 10.9 fL (9.4-12.4); Monocytes # 1.3 K/mcL (0.0-1.3); Monocytes % 13.7 %; Neutrophils # 7.1 K/mcL (1.6-8.9); Platelet Count 216 K/mcL (140-400); Red Cell Distribution Width 13.1 % (11.5-14.5); Segmented Neutrophils % 77.7 %; White Blood Count 9.1 K/mcL (4.3-11.1)
[2022-06-02] MEDS: ARIPiprazole 5 MG TABLET PO SCH ×2 (10:27→22:43)
[2022-06-02] MEDS: Ascorbic Acid 500 MG TABLET PO SCH (10:27)
[2022-06-02] MEDS: amLODIPine 5 MG TABLET PO SCH (10:27)
[2022-06-02 10:41] LABS: RBC,Pleural Fluid 6000 RBC/mcL
[2022-06-02 10:55] LABS: Glucose,Pleural Fluid 62 mg/dL (No Ref Range); LDH,Pleural Fluid > 1200 Units/L (No Ref Range); Total Protein,Pleural Fluid 3.6 g/dL
[2022-06-02 11:32] LABS: Appearance of Pleural Fl Cloudy (Clear)
[2022-06-02 13:37] LABS: Basophils,Pleural Fluid 0 %; Eosinophils,Pleural Fluid 0 %
[2022-06-02] MEDS: *HR* Rivaroxaban 15 MG TABLET PO SCH (17:52)
[2022-06-03] MEDS: Ipratropium/Albuterol Neb 3 ML IH SCH ×2 (04:35→10:21)
[2022-06-03] MEDS: Piperacillin/Tazobactam 3.375 GM in 0.9 % Sodium Chloride Mini Bag 100 ML IVPB SCH ×2 (05:30→08:27)
[2022-06-03 08:06] VITALS: TEMP 97.9
[2022-06-03] MEDS: amLODIPine 5 MG TABLET PO SCH (08:25)
[2022-06-03] MEDS: Ascorbic Acid 500 MG TABLET PO SCH (08:25)
[2022-06-03] MEDS: ARIPiprazole 5 MG TABLET PO SCH (08:34)
[2022-06-03 11:35] VITALS: BP 139/76; PULSE 83; O2SAT 96
[2022-06-03 13:34] LABS: Adenovirus Not Detected (Not Detect); Bordetella Pertussis Not Detected (Not Detect); Chlamydophila pneumoniae Not Detected (Not Detect); Coronavirus 229E Not Detected (Not Detect); Coronavirus HKU1 Not Detected (Not Detect); Coronavirus NL63 Not Detected (Not Detect); Coronavirus OC43 Not Detected (Not Detect); Human Metapneumovirus Not Detected (Not Detect); Human Rhinovirus/Enterovirus Not Detected (Not Detect); Influenza A Subtype 2009 H1 Not Detected (Not Detect); Influenza B Not Detected (Not Detect); Mycoplasma pneumoniae Not Detected (Not Detect); Parainfluenza Virus 1 Not Detected (Not Detect); Parainfluenza Virus 2 Not Detected (Not Detect); Parainfluenza Virus 3 Not Detected (Not Detect); Parainfluenza Virus 4 Not Detected (Not Detect); Respiratory Syncytial Virus Not Detected (Not Detect); SARS-CoV-2 Not Detected (Not Detect)
[2022-06-04 00:45] LABS: Fluid Source for Albumin PLEURAL FLUID
== END 2022-06-03 15:16 | disposition home or self-care (01) | DRG 177 ==
LOC: EMEROOARM 12:17 → 3ANU 12:17 → SUATTDRO 21:09 → 3ANU 21:39
PROVIDERS: ADMIT Internal Medicine; ATTEND Internal Medicine